=== PATIENT | female | born 1990 | race Caucasian/White ===

== ENCOUNTER 2020-09-25 00:58 | Emergency (ER) | payer OTHER | END 2020-09-25 01:37 | disposition left against medical advice (07) | LOC: ER1 00:58 | DX: Z53.21 Procedure and treatment not carried out due to patient leaving prior to being seen by health care provider (principal) ==

== ENCOUNTER 2020-11-02 17:03 | Emergency (ER) | payer OTHER ==
[2020-11-02] MEDS ORDERED: CYCLOBENZAPRINE10 MG PO (20:22)
== END 2020-11-02 20:33 | disposition home or self-care (01) ==
LOC: ER1 17:03
DX: R07.89 Other chest pain (principal); F17.210 Nicotine dependence, cigarettes, uncomplicated; Z88.0 Allergy status to penicillin
CPT/HCPCS: 71046; 93005; 99285

== ENCOUNTER → 2021-05-01 | Outpatient (CLI) | payer OTHER ==
[~2021-05-01] MED LIST: CYCLOBENZAPRINE10 MG PO
== END ==
LOC: KOH-I 13:15
DX: M54.50 Low back pain, unspecified (principal); M54.6 Pain in thoracic spine; M54.2 Cervicalgia; M25.512 Pain in left shoulder
CPT/HCPCS: 72040; 72070; 72100; 73030

== ENCOUNTER 2021-12-29 18:15 | Emergency (ER) | payer OTHER ==
[2021-12-29 19:04] LABS: RED BLOOD COUNT 4.65 M/UL (4.00-5.10); WHITE BLOOD COUNT 12.1 K/UL (4.5-11.0)
[2021-12-29 19:36] LABS: BUN/CREATININE RATIO 22 (0-10)
== END 2021-12-29 21:25 | disposition left against medical advice (07) ==
LOC: ER1 18:15
PROVIDERS: Physician Assistant
DX: T67.5XXA Heat exhaustion, unspecified, initial encounter (principal); E11.65 Type 2 diabetes mellitus with hyperglycemia; Z79.4 Long term (current) use of insulin; I10 Essential (primary) hypertension; F17.200 Nicotine dependence, unspecified, uncomplicated; Z79.84 Long term (current) use of oral hypoglycemic drugs; Z88.0 Allergy status to penicillin
CPT/HCPCS: 80048; 82550; 82962; 84484; 85025; 93005; 99283